=== PATIENT | male | born 1950 | race Caucasian/White ===

== ENCOUNTER 2021-02-05 05:31 | Day surgery (SDC) | payer MEDICARE ==
[2021-02-01 10:56] LABS: BASOPHILS % (AUTO) 0.4 % (0-1); EOSINOPHILS # (AUTO) 0.1 X10'3 (0-0.9); EOSINOPHILS % (AUTO) 1.8 % (0-6); LYMPHOCYTES # (AUTO) 1.9 X10'3 (1.1-4.8); LYMPHOCYTES % (AUTO) 30.8 % (21-51); MEAN CORPUSCULAR HEMOGLOBIN 32.5 PG (27.0-31.0); MEAN CORPUSCULAR VOLUME 92.9 FL (78-98); MEAN PLATELET VOLUME 7.9 FL (7.4-10.4); MONOCYTES # (AUTO) 0.5 X10'3 (0-0.9); NEUTROPHILS # (AUTO) 3.6 X10'3 (1.8-7.7); PRE OP HEMATOCRIT 44.6 % (42.0-52.0); PRE OP HEMOGLOBIN 15.6 g/dL (14.0-17.9); PRE OP PLATELET COUNT 221 X10'3 (140-440); RED CELL DISTRIBUTION WIDTH 13.7 % (11.5-14.5)
[2021-02-01 11:10] LABS: ALBUMIN 3.8 G/DL (3.4-5.0); ALKALINE PHOSPHATASE 98 IU/L (46-116); BLOOD UREA NITROGEN 20 MG/DL (7-18); BUN/CREATININE RATIO 17.7 (5.4-32.0); CALCIUM 8.9 MG/DL (8.5-10.1); CHLORIDE 102 MMOL/L (99-107); CREATININE 1.13 MG/DL (0.60-1.10); PRE OP ALT 46 U/L (30-65); PRE OP ANION GAP 4 (8-16); PRE OP AST 25 U/L (10-37); PRE OP BILIRUB, TOTAL 0.6 MG/DL (0.0-1.0); PRE OP GLUCOSE 103 MG/DL (70-104); PRE OP SODIUM 136 MMOL/L (135-145); TOTAL PROTEIN 7.6 G/DL (6.4-8.2); eGFR 65 ML/MIN
[~2021-02-05] VITALS: Ht 188 cm; Wt 99.8 kg
[2021-02-05] VITALS (13 sets, daily range): BP systolic 101–146; BP diastolic 60–73
[~2021-02-05 05:31] MED LIST: ASPI-1265 PO; CHOL20004 PO; MULT-1085 PO; VALS1TAB80 PO; cefazolin/dext.iso 2gm/50ml IV ONE; famotidine 20mg tablet PO ONE; ringers solution, lacted 1,000 ML IV SCH
[2021-02-05] MEDS ORDERED: fentaNYL/PF 50MCG/1 ML 2ML syringe ONE (07:45)
[2021-02-05] MEDS ORDERED: rocuronium 10mg/ml inj IV ONE (07:45)
[2021-02-05] MEDS ORDERED: midazolam 1 mg/ML 2ml injection ONE (07:45)
[2021-02-05] MEDS ORDERED: propofol inj 20 ML IV ONE (07:45)
[2021-02-05] MEDS ORDERED: BUPIVAcaine 0.5% inj/PF 30 ML ONE (07:55)
[2021-02-05] MEDS ORDERED: dexamethasone sod phosphate 4mg/ml inj. ONE (07:58)
[2021-02-05] MEDS ORDERED: ondansetron/PF 4mg/2ml inj ONE (07:58)
[2021-02-05] MEDS ORDERED: sevoflurane 250ml liquid IH ONE (08:00)
[2021-02-05] MEDS ORDERED: LIDOcaine 1% 30ml preserv. free vial ONE (08:01)
[2021-02-05] MEDS ORDERED: BUPIVAcaine 0.5% inj/PF 30 ml vial IJ ONE (08:23)
[2021-02-05] MEDS ORDERED: ringers solution, lacted 1,000 ML IV SCH (08:25)
[2021-02-05] MEDS ORDERED: ondansetron/PF 4mg/2ml inj IV PRN (08:25)
[2021-02-05] MEDS ORDERED: morphine 2 MG/ML inj. syringe IV PRN (08:25)
[2021-02-05] MEDS ORDERED: meperidine/PF 25mg/ml syringe IV PRN ×3 (08:25)
[2021-02-05] MEDS ORDERED: proCHLORperazine 10 MG/2 ml inj IV PRN (08:25)
[2021-02-05] MEDS ORDERED: labetalol 20mg/4ml (5mg/ml) syringe IV PRN (08:25)
[2021-02-05] MEDS ORDERED: morphine 4 MG/ML inj SYRINge IV PRN (08:25)
[2021-02-05] MEDS ORDERED: glycopyrrolate 0.2mg/ml inj ONE (09:28)
[2021-02-05] MEDS ORDERED: neostigmine methylsulfate 1 MG/ML 10ml vial ONE (09:28)
[2021-02-05] MEDS ORDERED: HYDROcodone/acetaminophen 5mg/325mg tablet PO PRN (09:45)
== END 2021-02-05 11:40 | disposition home or self-care (01) ==
LOC: PAS 05:31
PROVIDERS: ATTEND Surgery
DX: K42.9 Umbilical hernia without obstruction or gangrene (principal); K40.90 Unilateral inguinal hernia, without obstruction or gangrene, not specified as recurrent; K40.91 Unilateral inguinal hernia, without obstruction or gangrene, recurrent; D17.6 Benign lipomatous neoplasm of spermatic cord; I10 Essential (primary) hypertension; E66.9 Obesity, unspecified; Z68.28 Body mass index [BMI] 28.0-28.9, adult; Z79.899 Other long term (current) drug therapy; Z98.890 Other specified postprocedural states; Z98.52 Vasectomy status; Z96.651 Presence of right artificial knee joint; Z79.82 Long term (current) use of aspirin; Z72.89 Other problems related to lifestyle; Z20.822 Contact with and (suspected) exposure to COVID-19; Z82.49 Family history of ischemic heart disease and other diseases of the circulatory system; Z83.3 Family history of diabetes mellitus; Z82.61 Family history of arthritis; Z84.2 Family history of other diseases of the genitourinary system
CPT/HCPCS: 36415; 49585; 49650; 49651; 80053; 82948; 85025; 93005; C1781; J0690; J1100; J2250; J2270; J2405; J2704; J2710; J3010; J3490; J7030; J7120; S0020; U0003; U0005; Z7506; Z7508; A4215; A4618; A7000

== ENCOUNTER 2023-02-09 06:14 | Day surgery (SDC) | payer MEDICARE ==
[~2023-02-09] VITALS: Ht 188 cm; Wt 106.6 kg
[2023-02-09] VITALS (11 sets, daily range): BP systolic 121–154; BP diastolic 66–84; PULSE 53–63; RESP 12–18; TEMP 98; O2SAT 94–98
[~2023-02-09 06:14] MED LIST changes: -cefazolin/dext.iso 2gm/50ml IV ONE; -famotidine 20mg tablet PO ONE; -ringers solution, lacted 1,000 ML IV SCH
[2023-02-09] MEDS ORDERED: normal saline 1,000 ML IV SCH (06:40)
[2023-02-09] MEDS ORDERED: diphenhydrAMINE 25mg capsule PO PRN (06:40)
[2023-02-09] MEDS ORDERED: MAGN400C PO (06:48)
[2023-02-09] MEDS ORDERED: UBID100C16 PO (06:48)
[2023-02-09] MEDS ORDERED: OMEG-133 PO (06:48)
[2023-02-09] MEDS ORDERED: PANT40TA54 PO (06:48)
[2023-02-09] MEDS ORDERED: VITA-268 PO (06:48)
[2023-02-09] MEDS ORDERED: MULT-1249 PO (06:48)
[2023-02-09] MEDS ORDERED: ATOR40TA72 PO (06:48)
[2023-02-09] MEDS ORDERED: METO-395 PO (06:48)
[2023-02-09 06:56] LABS: BASOPHILS % (AUTO) 0.7 % (0-1); EOSINOPHILS # (AUTO) 0.3 X10'3 (0-0.9); EOSINOPHILS % (AUTO) 4.3 % (0-6); HEMATOCRIT 45.5 % (42.0-52.0); HEMOGLOBIN 15.4 g/dl (14.0-17.9); LYMPHOCYTES # (AUTO) 1.8 X10'3 (1.1-4.8); LYMPHOCYTES % (AUTO) 29.4 % (21-51); MEAN CORPUSCULAR HEMOGLOBIN 32.1 PG (27.0-31.0); MEAN CORPUSCULAR HGB CONC 33.9 g/dL (33.0-36.5); MEAN CORPUSCULAR VOLUME 94.6 FL (78-98); MEAN PLATELET VOLUME 8.7 FL (7.4-10.4); MONOCYTES # (AUTO) 0.7 X10'3 (0-0.9); MONOCYTES % (AUTO) 10.6 % (2-12); NEUTROPHILS # (AUTO) 3.4 X10'3 (1.8-7.7); PLATELET COUNT 207 X10'3 (140-440); RED BLOOD COUNT 4.81 X10'6 (4.70-6.10); RED CELL DISTRIBUTION WIDTH 13.6 % (11.5-14.5); WHITE BLOOD COUNT 6.2 X10'3 (4.5-11.0)
[2023-02-09 07:06] LABS: INR 1.1 INR; PROTHROMBIN TIME 11.9 SECONDS (9.0-12.0)
[2023-02-09 07:16] LABS: ALBUMIN 3.6 G/DL (3.4-5.0); ANION GAP 8 (8-16); BLOOD UREA NITROGEN 21 MG/DL (7-18); BUN/CREATININE RATIO 19.4 (10.0-20.0); CALCIUM 8.6 MG/DL (8.5-10.1); CHLORIDE 106 MMOL/L (99-107); CREATININE 1.08 MG/DL (0.60-1.10); GLUCOSE 113 MG/DL (70-104); POTASSIUM 3.8 MMOL/L (3.5-5.1); SODIUM 141 MMOL/L (135-145); eCRCL 74 ML/MIN; eGFR 68 ML/MIN
[2023-02-09] MEDS ORDERED: LIDOcaine 1% (10mg/ml)w/preservative inj. 20ml MDV ONE (08:21)
[2023-02-09] MEDS ORDERED: fentaNYL/PF 50MCG/1 ML 2ML syringe ONE (08:21)
[2023-02-09] MEDS ORDERED: iohexol 350MG/ML 100ml bottle IV ONE (08:21)
[2023-02-09] MEDS ORDERED: midazolam 1 mg/ML 2ml injection ONE (08:21)
[2023-02-09] MEDS ORDERED: iohexol 350 MG/ML 50ML vial IV ONE (08:21)
[2023-02-09] MEDS ORDERED: verapamil 2.5 mg/ml inj IV ONE (08:21)
[2023-02-09] MEDS ORDERED: heparin 1,000unit/ml 10ml vial 10 ML ONE (08:21)
[2023-02-09] MEDS ORDERED: nitroGLYCERIN 500mcg/5mL D5W 5 ML IV ONE (08:27)
[2023-02-09] MEDS ORDERED: ondansetron/PF 4mg/2ml inj IV PRN (10:20)
[2023-02-09] MEDS ORDERED: HYDROcodone/acetaminophen 5mg/325mg tablet PO PRN (10:20)
[2023-02-09] MEDS ORDERED: HYDROcodone/acetaminophen 10/325mg tab PO PRN (10:20)
[2023-02-09] MEDS ORDERED: normal saline 1000ml 1,000 ML IV SCH (10:20)
[2023-02-09] MEDS ORDERED: proCHLORperazine 10 MG/2 ml inj IV PRN (10:20)
== END 2023-02-09 13:35 | disposition home or self-care (01) ==
LOC: SSTAY O 06:14
PROVIDERS: ATTEND Internal Medicine Cardiovascular Disease
DX: R94.31 Abnormal electrocardiogram [ECG] [EKG] (principal); I10 Essential (primary) hypertension; E78.00 Pure hypercholesterolemia, unspecified; Z96.651 Presence of right artificial knee joint; Z98.890 Other specified postprocedural states; Z98.52 Vasectomy status; Z72.89 Other problems related to lifestyle; Z79.899 Other long term (current) drug therapy; Z82.49 Family history of ischemic heart disease and other diseases of the circulatory system; Z83.3 Family history of diabetes mellitus
CPT/HCPCS: 36415; 80048; 85025; 85610; 93005; 93458; 99152; 99153; J1644; J2250; J3010; J3490; J7030; Q0163; Q9967; A4615; A6258; A6402; A6449; C1894